=== PATIENT | male | born 1995 | race Caucasian/White ===

== ENCOUNTER 2021-10-04 15:47 | Emergency (ER) | payer MEDICAID ==
[~2021-10-04] VITALS: Ht 188 cm; Wt 65.0 kg
[2021-10-04] MEDS ORDERED: TETANUS, DIPHTHERIA, PERTUSSIS VAC/PF 0.5ML (>10YR OLD) IM ONE (17:15)
[2021-10-04] MEDS ORDERED: BACITRACIN ZINC OINT UDPKT TOP ONE (17:15)
[2021-10-04] MEDS ORDERED: ACETAMINOPHEN WITH CODEINE 300/30MG TABLET PO ONE (17:15)
[2021-10-04 17:31] VITALS: BP 101/50
[2021-10-04] MEDS ORDERED: IBUP-2030 MT (17:52)
[2021-10-04] MEDS ORDERED: BO1 TP (17:53)
[2021-10-04] MEDS ORDERED: HYDR-4001 MT (18:02)
== END 2021-10-04 18:59 | disposition home or self-care (01) ==
LOC: ER 15:47
DX: S80.02XA Contusion of left knee, initial encounter (principal); S09.8XXA Other specified injuries of head, initial encounter; W01.0XXA Fall on same level from slipping, tripping and stumbling without subsequent striking against object, initial encounter; Y93.89 Activity, other specified; Y92.89 Other specified places as the place of occurrence of the external cause; Y99.8 Other external cause status
CPT/HCPCS: 73562; 73590; 90471; 90715; 99284; L1830; Z7610